=== PATIENT | female | born 1955 | race Hispanic/Latino ===

== ENCOUNTER 2017-12-18 15:44 | Outpatient (CLI) | payer BC | END 2017-12-18 15:45 | disposition home or self-care (01) | LOC: BICMAMMO 15:44 | PROVIDERS: ATTEND Family Medicine | DX: Z12.31 Encounter for screening mammogram for malignant neoplasm of breast (principal); M85.9 Disorder of bone density and structure, unspecified | CPT/HCPCS: 77063; 77067 ==

== ENCOUNTER 2019-06-29 12:52 | Outpatient (CLI) | payer BC ==
--- NOTE | 2019-06-29 14:48 | BD ---
DEXA BONE DENSITY STUDY: Date: 06/29/19 HISTORY: Postmenopausal. FINDINGS: Lumbar Spine: BMD (g/cm2) L1 0.634 T-Score: -3.2 L2 0.722 T-Score: -2.8 L3 0.674 T-Score: -3.7 L4 0.717 T-Score: -3.1 Total 0.691 T-Score: -3.2 Left Femoral Neck: 0.752 T-Score: -0.9 Total Femur: 0.839 T-Score: -0.8 IMPRESSION: Normal bone mineral density of the left femoral neck. Osteoporosis of the lumbar spine. POS: [facility]
--- NOTE | 2019-06-29 14:49 | RAD ---
CHEST 1 VIEW: Date: 06/29/19 HISTORY: Generalized pain. FINDINGS: Heart size is within normal limits. Aorta is mildly tortuous. Lungs are clear of infiltrates. No sign ificant bony findings. IMPRESSION: No active intrathoracic disease. POS: [facility]
--- NOTE | 2019-06-29 17:21 | MMO ---
Bilateral MAMMO Bilat Screen [facility]. CLINICAL HISTORY: Patient is 64 years old and is seen for screening. The patient has the following family history of breast cancer: mother. The patient has no personal history of cancer. VIEWS: The views performed were: bilateral craniocaudal with tomosynthesis and bilateral mediolateral oblique with tomosynthesis. FILMS COMPARED: The present examination has been compared to prior imaging studies performed at [facility] on 06/24/2013, 02/08/2015, 07/10/2016 and 12/18/2017. This study has been interpreted with the assistance of computer-aided detection. MAMMOGRAM FINDINGS: The breasts are almost entirely fat. There are no suspicious masses, suspicious calcifications, or new areas of architectural distortion. IMPRESSION: THERE IS NO MAMMOGRAPHIC EVIDENCE OF MALIGNANCY. A ROUTINE FOLLOW-UP MAMMOGRAM IN 1 YEAR IS RECOMMENDED. THE RESULTS OF THIS EXAM WERE SENT TO THE PATIENT. ACR BI-RADS Category 1 - Negative MAMMOGRAPHY NOTE: 1. A negative mammogram report should not delay a biopsy if a dominant of clinically suspicious mass is present. 2. Approximately 10% to 15% of breast cancers are not detected by mammography. 3. Adenosis and dense breasts may obscure an underlying neoplasm. Reported by: SADE MIRANDA MD Electonically Signed: [id number]
== END 2019-06-29 12:53 | disposition home or self-care (01) ==
LOC: BICMAMMO 12:52
PROVIDERS: ATTEND Family Medicine
DX: Z12.31 Encounter for screening mammogram for malignant neoplasm of breast (principal); Z13.820 Encounter for screening for osteoporosis; M81.8 Other osteoporosis without current pathological fracture; R10.84 Generalized abdominal pain; R14.0 Abdominal distension (gaseous); M06.9 Rheumatoid arthritis, unspecified; M81.0 Age-related osteoporosis without current pathological fracture; Z80.3 Family history of malignant neoplasm of breast
CPT/HCPCS: 71045; 77063; 77067; 77080

== ENCOUNTER 2019-09-09 08:21 | Outpatient (CLI) | payer BC ==
--- NOTE | 2019-09-09 09:06 | RAD ---
Radiograph right hip 2 views: HISTORY: 64-year-old female with right hip pain without trauma FINDINGS: There is central-medial joint space narrowing. Superior aspect of hip joint space is maintained. Wolf le or no subcapital osteophytosis. No femoral head collapse. No high-grade osteophytosis of acetabulum. Unremarkable right SI joint. No fracture or dislocation. Facet DJD at lumbosacral junctio n. Osteopenia. IMPRESSION: 1. Mild osteoarthrosis with mild articular cartilage thinning of the right hip joint. 2. Lumbar spondylosis with facet osteoarthrosis at the lumbosacral junction.
--- NOTE | 2019-09-09 09:08 | RAD ---
Radiograph right knee 4 views: HISTORY: 64-year-old female with right knee pain FINDINGS: No joint effusion. No fracture or dislocation. All 3 compartment joint spaces are maintained. Little or no osteophytosis at patellofemoral compartment. Mild sclerosis and mild osteophytosis at medial compartment. Minimal osteophytosis lateral compartment. Chondrocalcinosis at lateral compartment sugg estive of CPPD. Osteopenia. No destructive osseous lesion. IMPRESSION: Mild to moderate osteoarthrosis of the medial compartment.
--- NOTE | 2019-09-09 09:28 | ULT ---
BILATERAL LOWER EXTREMITY VASCULAR DUPLEX ULTRASOUND INCLUDING COLOR AND SPECTRAL DOPPLER IMAGING: Date: 09/09/2019 HISTORY: Severe leg pain. TECHNIQUE: Exam performed from groin to ankle including visualized greater saphenous, common femoral, superficia l femoral, profunda femoral, popliteal, trifurcation, and posterior tibial vein regions. FINDINGS: Phasic flow noted at all levels with normal compressibility and normal augmentation. No intraluminal thrombus. IMPRESSION: No evidence for deep venous thrombosis. POS: [facility]
== END 2019-09-09 08:22 | disposition home or self-care (01) ==
LOC: BICULT 08:21
PROVIDERS: ATTEND Family Medicine
DX: M25.551 Pain in right hip (principal); M25.561 Pain in right knee; M79.606 Pain in leg, unspecified; M17.11 Unilateral primary osteoarthritis, right knee; M16.11 Unilateral primary osteoarthritis, right hip; M47.816 Spondylosis without myelopathy or radiculopathy, lumbar region; M47.817 Spondylosis without myelopathy or radiculopathy, lumbosacral region
CPT/HCPCS: 93970

== ENCOUNTER 2022-03-13 14:37 | Outpatient (CLI) | payer MEDICARE | END 2022-03-13 14:38 | disposition home or self-care (01) | LOC: BICMAMMO 14:37 | PROVIDERS: ATTEND Internal Medicine Rheumatology | DX: M81.0 Age-related osteoporosis without current pathological fracture (principal); M85.851 Other specified disorders of bone density and structure, right thigh; M85.852 Other specified disorders of bone density and structure, left thigh | CPT/HCPCS: 77080 ==

== ENCOUNTER 2023-01-21 10:17 | Emergency (ER) | payer MEDICARE ==
[2023-01-21 11:01] LABS: #Eosinphils 0.2 thou/uL (0.0-0.7); #Monocytes 0.4 thou/uL (0.11-0.59); #Neutrophils 3.4 thou/uL (1.40-6.50); %Basophils 0.7 % (0.0-1.0); %Eosinophils 2.6 % (0.0-10.0); %Lymphocytes 29.9 % (21.0-51.0); %Monocytes 7.4 % (0.0-10.0); %Neutrophils 58.9 % (42.0-75.0); Hemoglobin 13.6 g/dL (12.0-16.0); Mean Corpuscular HGB CONC 34.2 g/dL (32.0-36.0); Mean Corpuscular Hemoglobin 31.1 pg (27.0-31.0); Mean Corpuscular Volume 90.9 fl (78.0-98.0); Mean Platelet Volume 10.2 fL (7.4-10.4); Platelet Count 286 10x3/uL (130-400); Red Blood Cell (RBC) Count 4.38 mill/uL (4.20-5.40); White Blood Cell (WBC) Count 5.8 10x3/uL (4.8-10.8)
[2023-01-21 11:21] LABS: ALT (SGPT) 12 U/L (8-55); AST (SGOT) 15 U/L (5-34); Albumin 4.3 g/dL (3.4-4.8); Alkaline Phosphatase 54 U/L (40-110); Anion Gap 9 mmol/L (10-20); BUN (Urea Nitrogen) 12 mg/dL (9.8-20.1); Bilirubin, Total 0.3 mg/dL (0.2-1.2); Calc. Creatinine Clearance 0 mL/min (70-130); Calcium 10.3 mg/dL (7.8-10.44); Carbon Dioxide 26 mmol/L (23-31); Chloride 107 mmol/L (98-107); Estimated GFR 81; Glucose 99 mg/dL (80-115); Lipase 24 U/L (8-78); Potassium 4.1 mmol/L (3.5-5.1); Protein, Total 7.3 g/dL (5.8-8.1); Sodium 138 mmol/L (136-145)
== END 2023-01-21 13:26 | disposition home or self-care (01) ==
LOC: ERS 10:17
DX: R07.9 Chest pain, unspecified (principal); R06.00 Dyspnea, unspecified; I10 Essential (primary) hypertension; E11.9 Type 2 diabetes mellitus without complications; Z79.84 Long term (current) use of oral hypoglycemic drugs; Z79.899 Other long term (current) drug therapy
CPT/HCPCS: 36415; 71045; 80053; 83690; 83880; 84443; 84484; 85025; 93005

== ENCOUNTER 2023-04-15 13:58 | Outpatient (CLI) | payer MEDICARE | END 2023-04-15 13:59 | disposition home or self-care (01) | LOC: SCSRAD 13:58 | PROVIDERS: ATTEND Family Medicine | DX: M54.2 Cervicalgia (principal); J32.4 Chronic pansinusitis; M62.838 Other muscle spasm; R42 Dizziness and giddiness; M47.12 Other spondylosis with myelopathy, cervical region; M47.812 Spondylosis without myelopathy or radiculopathy, cervical region | CPT/HCPCS: 70220; 71046; 72040 ==

== ENCOUNTER 2024-02-25 09:42 | Outpatient (CLI) | payer MEDICARE | END 2024-02-25 09:43 | disposition home or self-care (01) | LOC: BICMAMMO 09:42 | PROVIDERS: ATTEND Family Medicine | DX: Z12.31 Encounter for screening mammogram for malignant neoplasm of breast (principal); M85.851 Other specified disorders of bone density and structure, right thigh; M85.852 Other specified disorders of bone density and structure, left thigh; M81.0 Age-related osteoporosis without current pathological fracture; Z80.3 Family history of malignant neoplasm of breast | CPT/HCPCS: 77063; 77067; 77080 ==

== ENCOUNTER 2024-05-11 08:24 | Outpatient (CLI) | payer MEDICARE ==
[2024-05-11] MEDS ORDERED: Iopamidol 370 76% 100 ML VIAL ONE (09:40)
== END 2024-05-11 08:25 | disposition home or self-care (01) ==
LOC: CT 08:24
PROVIDERS: ATTEND Internal Medicine Gastroenterology
DX: R10.12 Left upper quadrant pain (principal)
CPT/HCPCS: 36415; 74160; 82565; Q9967